=== PATIENT | female | born 1990 | race Caucasian/White ===

== ENCOUNTER 2021-07-31 09:19 | Emergency (ER) | payer OTHER, SELFPAY ==
--- NOTE | ~2021-07-31 | XR_ITS ---
XR knee LT min 4V DATE: 07/31/2021 09:36 INDICATION: Fall, left knee injury TECHNIQUE: Geddes, AP, bilateral oblique views and crosstable lateral view. COMPARISON: None FINDINGS: No fracture or dislocation or joint effusion. Joint spaces are preserved. No radiopaque int ra-articular loose body or chondrocalcinosis. IMPRESSION: Negative Reviewed, dictated and finalized at location A. IMPRESSION: Negative
--- NOTE | 2021-07-31 09:23 | ED.LOWEXIN ---
HPI - Extremity Injury (Lower) General Chief Complaint: Extremity Injury, Lower Stated Complaint: Left knee injury Time Seen by Provider: 07/31/21 09:23 Source: patient and RN notes reviewed History of Present Illness HPI Narrative: Patient is a 31-year-old female presents the urgent care with complaints of left knee pain after falling onto a piece of metal with a screw yesterday. Patient states she has noticed increased swelling and tenderness. Patient states is very difficult to bend the knee due to pain. Patient denies any recent fevers. States that she is up-to-date on her tetanus shot. Patient has been taking Tylenol for the pain. No other acute complaints. No acute distress noted. Patient aware of the plan of care. Some parts of this dictation were generated by voice recognition software and may contain typographical and/or grammatical inaccuracies. Related Data Home Medications Medication Instructions Recorded Confirmed norgestimate-ethinyl estradiol 1 tablet PO DAILY 07/31/21 07/31/21 [Sprintec (28)] Allergies Allergy/AdvReac Type Severity Reaction Status Date / Time No Known Allergies Allergy Unverified 07/31/21 09:46 Review of Systems Review of Systems: CONSTITUTIONAL: Denies fever, chills, or sweats. EYES: Denies visual changes, redness, or discharge. ENT: Denies rhinorrhea, congestion, sore throat, or otalgia. CARDIOVASCULAR: Denies chest pain, palpitations, or edema. RESPIRATORY: Denies cough or dyspnea. GASTROINTESTINAL: Denies abdominal pain, nausea, vomiting, or diarrhea. GENITOURINARY: Denies dysuria or hematuria. SKIN: Reports of puncture wound to left knee MUSCULOSKELETAL: Reports of left knee pain and swelling NEUROLOGIC: Denies headache, numbness, or weakness. All other systems reviewed are negative, except as documented in HPI. PMFSH Comments At the time of my signature, I reviewed and agree with the nursing past medical, surgical, social, and family history. There is no relevant family history pertinent to the patient complaint. Exam Narrative: GENERAL: This is a well-nourished, well-developed patient, in no apparent distress. HEAD: normocephalic, atraumatic. EYES: PERRL. Sclera clear/white. Vision is grossly intact. EARS: External ears normal NOSE: External nose normal with no obvious nasal discharge, nares without redness, no rhinorrhea. THROAT: Mucous membranes moist NECK: Neck supple CARDIOVASCULAR: Regular rate and rhythm without murmurs, gallops, or rubs. RESPIRATORY: Clear to auscultation. Breath sounds equal bilaterally. No wheezes, rales, or rhonchi. SKIN: Puncture wound without surrounding erythema to the left anterior knee NEURO: awake, alert, and oriented to person, place and time. There were no obvious focal neurologic abnormalities. EXTREMITIES: Mild to moderate edema and tenderness surrounding the left anterior knee. Positive strong left pedal pulse with capillary refill less than 2 seconds. Range of motion not tested due to pain Course Course Level of Care: Express Care Visit Vital Signs Vital signs: Vital Signs Temperature 98.8 F 07/31/21 09:24 Pulse Rate 64 07/31/21 09:24 Respiratory Rate 18 07/31/21 09:24 Blood Pressure 139/95 H 07/31/21 09:24 Pulse Oximetry 100 07/31/21 09:24 Temperature 98.8 F 07/31/21 09:46 Pulse Rate 64 07/31/21 09:46 Respiratory Rate 18 07/31/21 09:46 Blood Pressure 139/95 H 07/31/21 09:46 Pulse Oximetry 100 07/31/21 09:46 Reviewed-patient is informed that they may have pre-hypertension or hypertension based on a blood pressure reading in the department. I recommend the patient call the primary care provider listed on their discharge instructions or a physician of their choice this week to arrange follow-up for further evaluation of possible pre-hypertension or hypertension. MDM - Extremity Injury (Lower) MDM Narrative Medical decision making narrative: Reviewed x-ray results with the patient. She is
[2021-07-31 09:24] VITALS: BP 139/95; PULSE 64; RESP 18; TEMP 37.1; O2SAT 100
[2021-07-31 09:46] VITALS: BP 139/95; PULSE 64; RESP 18; TEMP 37.1; O2SAT 100
== END 2021-07-31 10:00 | disposition home or self-care (01) ==
PROVIDERS: Emergency Provider Nurse Practitioner Family; PCP Internal Medicine
DX: S81.032A Puncture wound without foreign body, left knee, initial encounter (principal); M25.562 Pain in left knee; W18.39XA Other fall on same level, initial encounter
CPT/HCPCS: 73564; 99213; G0463

== ENCOUNTER 2024-01-03 10:33 | Emergency (ER) | payer BC, SELFPAY ==
[2024-01-03 10:40] VITALS: BP 118/69; PULSE 93; RESP 16; TEMP 37; O2SAT 100
[2024-01-03 11:03] LABS: EDSTREPNEGPOS1 Negative (Negative)
--- NOTE | 2024-01-03 11:27 | ED.URI ---
HPI - URI/Sore Throat General Chief Complaint: Upper Respiratory Infection Stated Complaint: throat/aches Time Seen by Provider: 01/03/24 11:00 Source: patient, RN notes reviewed and old records reviewed Mode of arrival: ambulatory Limitations: no limitations History of Present Illness HPI Narrative: 33 year old female who presents to [facility] care with complaints of sore throat which started yesterday and some body aches. Patient reports that she has had recent positive exposure to strep. Patient reports that her glands in her marino are tender. Patient denies any headache or any nausea or vomiting, Has taken some Ibuprofen for her lymptoms MD elicited complaint: sore throat and other (body aches) Onset (ago): day(s) (day 2 of symptoms) Pain scale (0-10): 7 Able to tolerate fluids by mouth: Yes Related Data Home Medications Medication Instructions Recorded Confirmed norgestimate 0.25 mg-ethinyl 1 tablet PO DAILY 07/31/21 07/31/21 estradiol 35 mcg tablet (Sprintec (28)) Allergies Allergy/AdvReac Type Severity Reaction Status Date / Time No Known Allergies Allergy Unverified 01/03/24 10:34 Review of Systems Review of Systems: CONSTITUTIONAL: Reports malaise, chills, sweats, no known fever. EYES: Denies visual changes, redness, or discharge. ENT: Reports rhinorrhea, congestion,no sinus pain, otalgia and positive for sore throat. CARDIOVASCULAR: Denies chest pain, palpitations, or edema. RESPIRATORY: Reports no cough.? Denies dyspnea. GASTROINTESTINAL: Denies abdominal pain, nausea, vomiting, diarrhea SKIN: Denies rash or itching. MUSCULOSKELETAL: Reports myalgia. NEUROLOGIC: Denies headache. All systems reviewed & are unremarkable except as noted in HPI and below PMFSH Past Medical History Medical History Fracture of right upper extremity Tonsillitis Social History Social History Smoking packs per day: 0.25 Smoking cigarettes per day: 5.0 Years smoked: 10 Smoking pack-years: 2.50 Smoking status: Former smoker Alcohol intake: current Alcohol use details: rare social Substance use type: does not use Living arrangements: with family Gender identity (if verbalized by the patient): Female Comments At time of signature, agree with nursing past medical, surgical, social and family history. There is no relevant family history pertinent to the presenting complaint Exam Narrative: GENERAL: Well-appearing, well-nourished, and in no acute distress. HEAD: Normocephalic EYES: PERRLA, conjunctivae clear ENT: Nares clear, turbinates edematous and erythematous, clear discharge. Mucous membranes moist Left TM red, Right TM pearly abad with dull light reflex ; no tragal tenderness. Oropharynx erythematous without lesions. Tonsils red enlarged and without exudate, no drooling, no hoarseness, no trismus, uvula midline.some post nasal drainage NECK: Supple. lymphadenopathy CHEST: Clear to auscultation, breath sounds equal. No wheezing, rhonchi, rales, or stridor. No respiratory distress, speaks in full sentences.SAO2 100% on room air HEART: Regular rate and rhythm. No murmur heard. SKIN: Warm, dry, no rash. NEURO: Alert and oriented x3. PSYCH: Normal mood and affect Course Course Emergency Course: Patient is aware of diagnosis, understands and agrees to treatment plan.? Anticipatory guidance given.? Patient agrees to follow-up as directed and is aware of reasons to seek care at the emergency department. Portions of this record may have been created with voice recognition software Level of Care: Express Care Visit Vital Signs Vital signs: Vital Signs Temperature 37.0 C 01/03/24 10:40 Pulse Rate 93 01/03/24 10:40 Respiratory Rate 16 01/03/24 10:40 Blood Pressure 118/69 01/03/24 10:40 Pulse Oximetry 100 01/03/24 10:40 Oxygen Deli
[2024-01-03 12:17] LABS: EDCOVIDSCREEN Negative (Negative); EDINFLUASCREEN Negative (Negative); EDINFLUBSCREEN Negative (Negative)
== END 2024-01-03 12:06 | disposition home or self-care (01) ==
PROVIDERS: Emergency Provider Registered Nurse; PCP Internal Medicine
DX: H66.92 Otitis media, unspecified, left ear (principal); J03.90 Acute tonsillitis, unspecified; Z87.891 Personal history of nicotine dependence; Z20.822 Contact with and (suspected) exposure to COVID-19
CPT/HCPCS: 87081; 87426; 87804; 87880; 99213; G0463

== ENCOUNTER 2024-10-13 11:04 | Outpatient (CLI) | payer OTHER, SELFPAY ==
--- NOTE | ~2024-10-13 | XR_ITS ---
Left elbow Technique: AP and lateral views were obtained. Clinical History: Pain Findings: No acute fracture or dislocation is seen. Osseous alignment is anatomic. Joint spaces are p reserved. There is no displacement of the fat pads, and soft tissues are unremarkable. Impression: Unremarkable radiographs. Reviewed, dictated and finalized at location . Impression: Unremarkable radiographs.
--- NOTE | ~2024-10-13 | XR_ITS ---
Right elbow Technique: AP and lateral views were obtained. Clinical History: Pain Findings: No acute fracture or dislocation is seen. Osseous alignment is anatomic. Joint spaces are p reserved. There is no displacement of the fat pads, and soft tissues are unremarkable. Impression: Unremarkable radiographs. Reviewed, dictated and finalized at location . Impression: Unremarkable radiographs.
--- OUTSIDE RECORDS SUMMARY | 2024-10-13 11:11 | XMS_ITS | Referral Summary ---
Author Organization [facility] [address] Address [address] [place] [address] Phone Care Team Providers Care Sports Psychologist Name Role Phone Sabrina Carter MD Unavailable Donnell Sequeira MD Primary Care Provider [phone] Allergies No known active allergies Medications norgestimate-ethin yl estradioL (Sprintec, 28,) 0.25-35 mg-mcg per tabletIndications: Dysmenorrhea,Oral contraceptive pill surveillance Take 1 tablet by mouth daily 84 tablet 4 5 Active Active Problems Problem Noted Date Diagnosed Date Tendinitis of right elbow 08/13/2023 Assessment & Plan (08/13/2023 2:53 PM CDT): Patient is describing mild case of tendinitis right elbow. Started in January pain very infrequent is gradually built up to daily pain. 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 Patient is given information from up-to-date today regarding tennis elbow. Treatment would include ice cold hot packs physical therapy exercises she can do as well as elbow sleeve. Patient's contact me if she does not satisfactory improved at that time was sent in a prescription non steroidal anti-inflammatory Hand, foot and mouth disease (HFMD) 12/08/2022 Assessment & Plan (12/08/2022 12:15 PM CDT): Spotty rash on hands, feet, inside mouth. Accompanied by flu-like symptoms. Son was diagnosed by budget counselor last week. Is beginning to feel better, spots are resolving. Continue to treat symptomatically. Provided note to take 12/06 off work, may return to work 12/07. Acute pain of left knee 09/16/2021 Assessment & Plan (09/16/2021 12:54 PM CDT): Patient phone left knee pop 6 7 weeks ago still has some pain she landed on the screw and she is in no acute distress about this when she bends and twists certain ways. Advised that she can new use a knee sleeve this may help her times since her works physical and patient's advised use topical anti-inflammatory medicines are take the Aleve type products on a p.r.n. basis.. She had x-ray done at time injury was negative. Lipoma of right upper extremity 09/16/2021 Assessment & Plan (02/28/2022 1:11 PM RESIDENT CARE COORDINATOR): Patient has a lipoma lateral border for lower left scapula . Patient advised me that her is concerned regarding this I gave her information on lipoma. Her exam of lipomas benign. 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 Assessment & Plan (09/16/2021 12:56 PM CDT): Patient has a lipoma on right forearm she also has 1 just below the sternum.. Advised he has a benign situation is no treatment indicated.. Patient is also given handbook from the [employer] regarding melanomas. Encounter for preventive health examination 01/31 Assessment & Plan (08/13/2023 2:51 PM CDT): 33-year-old lady here for annual exam she has no risk factors print physical completed patient's health risk assessment health maintenance reviewed in addressed. Patient's well-woman exam is current. Patient is describing tennis elbow at this time. Assessment & Plan (02/28/2022 1:12 PM RESIDENT CARE COORDINATOR): History and physical completed patient's health risk assessment health maintenance reviewed in addressed. Please see assessment and plan. 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 Patient is seen on 02/27/2022 Assessment & Plan (02/14/2021 5:25 PM RESIDENT CARE COORDINATOR): 30-year-old lady no ongoing health problems she is a smoker we discussed in discontinuation smoking she was successful in doing this 7 years ago when she had her son. Plans to try to discontinue smoking again. Patient has a well-woman exam on record.. Patient immunizations due tetanus shot is given today. Resolved Problems Problem Noted Date Diagnosed Date Resolved Date Type 2 diabetes mellitus wit h other specified complication 02/14/2021 02/28/2022 Assessment & Plan (02/14/2021 5:24 PM RESIDENT CARE COORDINATOR): Diagnosis erroneously submitted. This patient had abnormal glucose on a screening test for an insurance and she needs to have it repeated today she was never diagnosed with diabetes. Immunizations Immunization Administration Dates Next Due DTP 06/07/1994, 2,02/11/1991,10/09,1990 HPV, Quadrivalent 05/28/2007,01/22/2007,11/28/19 07 Hep B, Adolescent or Pediatric 1,05/29/2000,04/24/2000,10/09 HiB 07/10/1996, 2,02/11/1991,10/09 Influenza, Quadrivalent, Spl it, Intramuscular 01/10/2016 MMR 12/06/1993,08/13/1991 Meningococcal C Conjugate 11/27/2006 OPV 06/07/1994, 2,02/11/1991,10/09,1990 Td, adsorbed 02/14/2021,12/12/2004 Social History Tobacco Use Types Packs/Day Years Used Date Smoking Tobacco: Former Cigarettes 0.5 16.5 S tarted: 2008 Smokeless Tobacco: Never Tobacco Cessation:Counseling Given: Not Answered Alcohol Use Standard Drinks/Week Comments Yes 0 (1 standard drink = 0.6 oz pur e alcohol) PHQ-2 Answer Date Recorded PHQ-2 Total Score (If total score is 3 or more points, staff should administer the PHQ-9) 0 08/13/2023 Comments No Sex and Gender Information Value Date Recorded Sex Assigned at Not on file Legal Sex Female 11:03 AM RESIDENT CARE COORDINATOR Gender Identity Female 01/03/2024 10:52 AM CDT Sexual Orientation Straight 01/03/2024 10 :52 AM CDT Occupation Industry Job Start Date Job End Date [place] Not on file Not on file Not on file Last Filed Vital Signs Vital Sign Reading Time Taken Comments Blood Pressure 110/62 06/30/2024 9:46 AM CDT Pulse 84 08/13/2023 1:55 PM CDT Temperature 36.2 C (97.1 F) 08/13/2023 1:55 PM CDT Respiratory Rate 16 08/13/2023 1:55 PM CDT Oxygen Saturation 98% 08/13/2023 1:55 PM CDT Inhaled Oxygen Concentration - - Weight 67.1 kg (148 lb) 06/30/2024 9:46 AM CDT Height 154.9 cm (5' 1) 06/30/2024 9:46 AM CDT Body Mass Index 27.96 06/30/2024 9:46 AM CDT Plan of Treatment Not on file Procedures Procedure Name Priority Date/Time Associated Diagnosis Comments PAP AND HIGH RISK HPV, REFLEX TO GENOTYPING Routine 05/16/2021 9:36 AM RESIDENT CARE COORDINATOR Screening for malignant neoplasm of cervix HEPATITIS C ANTIBODY Routine 03/07/2013 4:48 PM RESIDENT CARE COORDINATOR from Last 3 Months or Most Recently Relevant to Health Maintenance Results * Pap and High Risk HPV, reflex to Genotyping (05/16/2021 9:36 AM RESIDENT CARE COORDINATOR) Thin prep (Pap test) 05/16/2021 9:36 AM RESIDENT CARE COORDINATOR 05/16/2021 9:36 AM RESIDENT CARE COORDINATOR Narrative PATHOLOGY CH - 05/18/2021 2:54 PM RESIDENT CARE COORDINATOR [facility] Department of Pathology [address] [place] [address] [place] [address] Final Report with Addendum Note to Patients: This report may contain a detailed description of human tissue sent by a health care provider to the laboratory for pathologic evaluation. The content of this report is essential for diagnosis and may provide important critical findings. This information may be unfamiliar to patients to review without a medical professional present. It is advised that the patient review this report in the presence of a health care provider who can answer questions and explain the details. Patient Name: MAIRA UMANZOR Address: [address] [place] [address] Gender: F : 1990 (Age: 31) Service: Laboratory Location: Lab [facility] #: [id number] Patient Type: [facility] Lab Taken: 05/16/2021 Received: 05/16/2021 Accessioned:: 05/17/2021 Reported: 05/18/2021 Physician(s): MD Sabrina Grande MD Diagnosis: Source of Specimen: SCREENING THIN PREP IMAGED PAP w/ HPV Specimen Adequacy: - Specimen satisfactory for interpretation; endocervical/transformation zone component absent or insufficient General Category: - Negative for intraepithelial lesion or malignancy Interpretation/Results: - Predominance of coccobacilli consistent with shift in vaginal sarah. Possible bacterial vaginosis BOB Liu(ASCP) Report Electronically Reviewed and Signed Out By DEMIAN LiuASCP) 05/18/2021 14:54:07 Addenda: HPV Test Interpretation NEGATIVE for types 16, 18, 31, 33, 35, 39, 45, 51, 52, 56, 58, 59, 66 and 68. Test performed utilizing Gen-Probe Aptima assay. BOB Denton(ASCP) Report Electronically Reviewed and Signed Out By DEMIAN DentonASCP) 05/18/2021 10:20:25 Specimen(s) Received: A: SCREENING THIN PREP IMAGED PAP w/ HPV Clinical History: Last Menstrual Period: 04/29/2021 The Pap test is a screening test used to aid in the detection of cervical cancer and its precursors. It should not be the sole means by which malignant and premalignant lesions are diagnosed. Both false negative and false positive results may occur. It also has poor sensitivity for the detection of endometrial lesions and should not be used to evaluate suspected endometrial abnormalities. For these reasons it is most important to obtain Pap tests at regular intervals. The performance characteristics of some immunohistochemical stains, fluorescence in-situ hybridization tests and immunophenotyping by flow cytometry cited in this report (if any) were determined by the Surgical Pathology Department at [facility] as part of an ongoing quality control scientist program and in compliance with federally mandated regulations drawn from the Clinical Laboratory Improvement Act of 1988 (CLIA '88). Some of these tests rely on the use of analyte specific reagents and are subject to specific labeling requirements by the US Food and Drug Administration. Such diagnostic tests may only be performed in a facility that is certified by the Department of Health and Human Services as a high complexity laboratory under CLIA '88. The FDA has determined that such clearance or approval is not necessary. This test is used for clinical purposes. It should not be regarded as investigational or for research. Nevertheless, federal rules concerning the medical use of analyte specific reagents require that the following disclaimer be attached to the report: This test was developed and its performance characteristics determined by the Surgical Pathology Department [facility]. It has not been cleared or approved by the U. S. Food and Drug Administration. Sabrina Carter MD LAB CYTOLOGY ORDERABL ES Final Result PATHOLOGY [address] [place] [address] * Hepatitis C antibody (03/07/2013 4:48 PM RESIDENT CARE COORDINATOR) Hep C Ab NON-REACT LEX NON-REACT LEX [facility] SIGNAL TO CUT-OFF 0.03 <1.00 [facility] Comment: [facility] [address] [place] [address] Director: DONNELL VELÁSQUEZ DO,MPH 03/07/2013 4:48 PM RESIDENT CARE COORDINATOR Sabrina Carter MD LAB MICROBIOLOGY - GE NERAL ORDERABLES Final Result [facility] from Last 3 Months or Most Recently Relevant to Health Maintenance Insurance [facility] Address: [address] [address] [place] [address] [facility] OPEN ACCESS R [facility] Address: [address] [address] [place] [address] Care Teams Sports Psychologist Relationship Specialty Start Date End Date Donnell Sequeira MD [address] [place] [address] PCP - General Internal Medicine 09/15/21 Sabrina Carter MD [address] [place] [address] Bootmaker Obstetrics and Gynecology 01/19/17
--- OUTSIDE RECORDS SUMMARY | 2024-10-13 11:11 | XMS_ITS | Clinical Summary ---
Author Organization [facility] Address [address] [place] [address] Phone Care Team Providers Care Hot Dip Plater Name Role Phone Donnell Sequeira MD Primary Care Provider [phone] Allergies No known active allergies Medications No known medications Active Problems No known active problems Social History Tobacco Use Types Packs/Day Years Used Date Smoking Tobacco: Never Smokeless Tobacco: Never Comments No Sex and Gender Information Value Date Recorded Sex Assigned at Not on file Legal Sex Female 10:41 AM CDT Gender Identity Not on file Sexual Orientation Not on file Last Filed Vital Signs Vital Sign Reading Time Taken Comments Blood Pressure 112/56 01/14/2023 11:12 AM CDT Pulse 99 01/14/2023 11:12 AM CDT Temperature 36.6 C (97.8 F) 01/14/2023 11:12 AM CDT Respiratory Rate 16 01/14/2023 11:12 AM CDT Oxygen Saturation 100% 01/14/2023 11:12 AM CDT Inhaled Oxygen Concentration - - Weight - - Height - - Body Mass Index - - Plan of Treatment Health Maintenance Due Date Last Done Comments Hepatitis C Virus (HCV) Screening 1990 TdaP Immunization 1990 Human Papillomavirus (HPV) Immunization (1 - 3-dose series) 2005 Hepatitis B Immunization (1 of 3 - 19+ 3-dose series) 2009 Pap Smear 2011 Cervical Cancer Screening (CCS) 2020 HPV/Cotest 2020 SARS-COV-2 Immunization ( - 2023- season) 2023 Influenza Immunization (#1) 2024 Respiratory Syncytial Virus (RSV) Immunization (Adult) (1 - 1-dose 75+ series) 2065 DTaP/Tdap/Td Immunization Discontinued 02/14/2021 Meningococcal Immunization (ACWY) Aged Out No longer eligible based on patient's age to complete this topic Pneumococcal Immunization Combined Aged Out No longer eligible based on patient's age to complete this topic Rotavirus Immunization Aged Out No lo nger eligible based on patient's age to complete this topic Insurance [facility] Care Teams Hot Dip Plater Relationship Specialty Start Date End Date Donnell Sequeira MD [address] [place] [address] PCP - General Internal Medicine 01/14/23
--- OUTSIDE RECORDS SUMMARY | 2024-10-13 11:11 | XMS_ITS | Encounter Summary ---
Author Organization [facility] Address [address] [place] [address] Phone Care Team Providers Care Forest Law And Policy Professor Name Role Phone Nasrin Lucero MD Primary Care Provider Nasrin Lucero MD Primary Care Provider [phone] Sabrina Carter MD Unavailable [phone] Donnell Sequeira MD Primary Care Provider [phone] Encounter Details Date Type Department Care Team (Late st Contact Info) Description 08/03/2012 Orders Only [facility] [address] [place] [address] Scanning, Provider Social History Tobacco Use Types Packs/Day Years Used Date Smoking Tobacco: Never Assessed Comments Unknown Sex and Gender Information Value Date Recorded Sex Assigned at Not on file Legal Sex Female 11:03 AM COPPERSMITH APPRENTICE Gender Identity Female 01/03/2024 10:52 AM CDT Sexual Orientation Straight 01/03/2024 10 :52 AM CDT documented as of this encounter Plan of Treatment Not on file documented as of this encounter Procedures Procedure Name Priority Date/Time Associated Diagnosis Comments SCAN - RADIOLOGY/IMAGING 08/03/2012 documented in this encounter Results * SCAN - RADIOLOGY/IMAGING (08/03/2012) Anatomical Region Laterality Modality Other us Provider Scanning Final Result documented in this encounter Visit Diagnoses Not on filedocumented in this encounter Additional Health Concerns Infection Onset Date Last Indicated Resolved Time COVID: Suspected 04/24/2023 04/24/2023 04/24/2023 10:32 AM COPPERSMITH APPRENTICE documented as of this encounter Care Teams Forest Law And Policy Professor Relationship Specialty Start Date End Date Nasrin Lucero MD [address] [place] [address] PCP - General 02/12/13 09/14/21 Nasrin Lucero MD [address] [place] [address] PCP - General 08/05/12 02/11/13 Donnell Sequeira MD [address] [place] [address] PCP - General Internal Medicine 09/15/21 Sabrina Carter MD [address] [place] [address] Education Counselor Obstetrics and Gynecology 01/19/17 documented as of this encounter
--- OUTSIDE RECORDS SUMMARY | 2024-10-13 11:11 | XMS_ITS | Clinical Summary ---
Author Organization [facility] [address] Address [address] [place] [address] Phone Care Team Providers Care Tractor Mechanic Name Role Phone Sabrina Carter MD Unavailable Donnell Sequeira MD Primary Care Provider [phone] Allergies No known active allergies Medications norgestimate-ethin [...] to daily pain. 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 Son was diagnosed by motor grader rough grade last week. Is beginning to feel better, [...] 09/16/2021 Assessment & Plan (02/28/2022 1:11 PM DEMO SPECIALIST): Patient has a lipoma lateral border for [...] Patient is also given handbook from the [employer] regarding melanomas. Encounter for preventive health examination 01/31 Assessment & Plan (08/13/2023 2:51 PM CDT): 33-year-old lady here for annual exam she has no risk factors print physical completed patient's health risk assessment health maintenance reviewed in addressed. Patient's well-woman exam is current. Patient is describing tennis elbow at this time. Assessment & Plan (02/28/2022 1:12 PM DEMO SPECIALIST): History and physical completed patient's health risk assessment health maintenance reviewed in addressed. Please see assessment and plan. 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 Patient is seen on 02/27/2022 Assessment & Plan (02/14/2021 5:25 PM DEMO SPECIALIST): 30-year-old lady no ongoing health problems she [...] 02/28/2022 Assessment & Plan (02/14/2021 5:24 PM DEMO SPECIALIST): Diagnosis erroneously submitted. This patient had abnormal [...] 11/27/2006 OPV 06/07/1994, 2,02/11/1991,10/09,1990 Td, adsorbed 02/14/2021,12/12/2004 Medical History Medical History Date Comments Abnormal Pap smear of cervix 2018 LSI L, more advanced lesion may be present. Colposcopy - ROSALINA 1. Family History Medical History Relation Name Comments Diabetes Maternal Grandmother Diabete s mellitus; Other Mother's Brother 2 Cancer, u nknown type; Cause of : Cancer, unknown type Hypertension Paternal Grandmother Hyperte nsion; Relation Name Status Comments Maternal Grandmother Mother's Brother 1 Mother's Brother 2 Paternal Grandmother Social History Tobacco Use Types Packs/Day Years [...] on file Legal Sex Female 11:03 AM DEMO SPECIALIST Gender Identity Female 01/03/2024 10:52 AM CDT Sexual Orientation Straight 01/03/2024 10 :52 AM CDT Occupation Industry Job Start Date Job End Date [employer] Not on file Not on file Not on file Obstetrics History Para Term AB IAB SAB Ectopic Multiple Livin g Live Births 1 1 1 0 0 1 1 Date Outcome GA Total Labor Labor/2nd/3rd Weight Sex Type Anes PTL Danya A1 A5 Name Clin 2013 Term M Vag-V acuum Living Last Filed Vital Signs Vital Sign Reading [...] 06/30/2024 9:46 AM CDT Plan of Treatment Health Maintenance Due Date Last Done Comments Varicella Vaccines (1 of 2 - 13+ 2-dose series) 2003 DTaP/Tdap/Td Vaccine (6 - Tdap) 02/15/2021 02/14/2021, 12/12/2004, 06/07/1994, Additional history exists Cervical Cancer Screening 05/16/2022 05/16/2021, Depression Screening 08/12/2024 08/13/2023, 02/27/2022, 02/14/2021 Influenza Vaccine (#1) 2024 01/10/2016 Regular Well Visit/Exam 18-64 06/30/2025 06/30/2024, 08/13/2023, 06/11/2023, Additional history exists Hepatitis B Screening Completed 10/23/2000 , 05/29/2000, 04/24/2000, Additional history exists HPV Vaccines Completed 05/28/2007, 01/01, 11/27/2006 Hepatitis C Screening Completed 03/07/2013 Pneumococcal vaccine <65 Aged Out No longer eligible based on patient's age to complete this topic Procedures Procedure Name Priority Date/Time Associated Diagnosis Comments PAP AND HIGH RISK HPV, REFLEX TO GENOTYPING Routine 05/16/2021 9:36 AM DEMO SPECIALIST Screening for malignant neoplasm of cervix HEPATITIS C ANTIBODY Routine 03/07/2013 4:48 PM DEMO SPECIALIST from Last 3 Months or Most Recently Relevant to Health Maintenance Results * Pap and High Risk HPV, reflex to Genotyping (05/16/2021 9:36 AM DEMO SPECIALIST) Thin prep (Pap test) 05/16/2021 9:36 AM DEMO SPECIALIST 05/16/2021 9:36 AM DEMO SPECIALIST Narrative PATHOLOGY CH - 05/18/2021 2:54 PM DEMO SPECIALIST [facility] Department of Pathology [address] [place] [id number] Final Report with Addendum Note to Patients: [...] the details. Patient Name: MAIRA UMANZOR Address: [address] [place] [address] Gender: F : 1990 (Age: 31) Service: Laboratory Location: Lab [facility] #: [id number] Patient Type: Ref Lab Taken: 05/16/2021 Received: 05/16/2021 Accessioned:: 05/17/2021 [...] Electronically Reviewed and Signed Out By DEMIAN LiuASC) 05/18/2021 14:54:07 Addenda: HPV Test Interpretation NEGATIVE for types 16, 18, 31, 33, 35, 39, 45, 51, 52, 56, 58, 59, 66 and 68. Test performed utilizing Gen-Probe Aptima assay. BOB Denton(ASCP) Report Electronically Reviewed and Signed Out By BOB Denton(ASC) 05/18/2021 10:20:25 Specimen(s) Received: A: SCREENING THIN [...] determined by the Surgical Pathology Department at [facility] as part of an ongoing quality intern program and in compliance with federally mandated [...] characteristics determined by the Surgical Pathology Department [facility]. It has not been cleared or approved by the U. S. Food and Drug Administration. Sabrina Carter MD LAB CYTOLOGY ORDERABL ES Final Result PATHOLOGY [address] [place] [address] * Hepatitis C antibody (03/07/2013 4:48 PM DEMO SPECIALIST) Hep C Ab NON-REACT LEX NON-REACT LEX [facility] SIGNAL TO CUT-OFF 0.03 <1.00 [facility] Comment: Test performed at [email or web address] [place] [address] [place] [address] Director: DONNELL VELÁSQUEZ DO,MPH 03/07/2013 4:48 PM DEMO SPECIALIST Sabrina Carter MD LAB MICROBIOLOGY - GE NERAL ORDERABLES Final Result [facility] RESULTS from Last 3 Months or Most Recently Relevant to Health Maintenance Insurance [facility] OPEN ACCESS [facility] Care Teams Tractor Mechanic Relationship Specialty Start Date End Date Donnell Sequeira MD [address] [place] [id number] PCP - General Internal Medicine 09/15/21 Sabrina Carter MD [address] [id number] Rug Cleaner Helper Obstetrics and Gynecology 01/19/17
[2024-10-13 18:21] LABS: Hematocrit 42.7 % (37.0-47.0); Hemoglobin 13.7 g/dL (12.0-15.0); Mean Corpuscular HGB Conc 32.1 g/dl (32-36); Mean Corpuscular Hemoglobin 31.5 pg (26-34); Mean Corpuscular Volume 98.2 fl (80-100); Platelet Count Result 340 k/mm3 (150-375); Red Blood Count 4.35 M/mm3 (4.2-5.4); White Blood Count 8.8 K/mm3 (4.5-10.0)
[2024-10-13 18:37] LABS: Alanine Aminotransferase 23 U/L (6-35); Albumin Level 4.2 g/dL (3.5-5.1); Alkaline Phosphatase 40 U/L (38-126); Anion Gap 7 mmol/L (4-12); Aspartate Amino Transferase 82 U/L (14-36); Bilirubin,Total 0.3 mg/dL (0.2-1.3); Blood Urea Nitrogen 18 mg/dL (7-17); Calcium 9.3 mg/dL (8.4-10.2); Carbon Dioxide 26 mmol/L (22-30); Chloride 107 mmol/L (98-107); Cholesterol 183 mg/dL (0-200); Estimated Glomerular Filt Rate > 60; Glucose 94 mg/dL (65-110); HDL Direct 69 mg/dL; Potassium 3.9 mmol/L (3.4-5.0); Sodium 140 mmol/L (137-145); Total Protein 7.3 g/dL (6.3-8.2); Triglycerides 98 mg/dL (<150)
[2024-10-13 21:54] LABS: Thyroid Stimulating Hormone 1.120 uIU/mL (0.465-4.680)
== END 2024-10-13 11:05 | disposition home or self-care (01) ==
PROVIDERS: PCP Nurse Practitioner Adult Health; Visit Provider Nurse Practitioner Adult Health
DX: M25.521 Pain in right elbow (principal); M25.522 Pain in left elbow; Z13.9 Encounter for screening, unspecified
CPT/HCPCS: 36415; 73070; 80053; 80061; 84443; 85027

== ENCOUNTER 2024-11-24 09:26 | Outpatient (CLI) | payer OTHER, SELFPAY ==
--- NOTE | ~2024-11-24 | US_ITS ---
US soft tissue abdomen 11/24/2024 09:36 Indication: Midline abdominal palpable lump. Procedure: Soft tissue ultrasound of the abdomen and the area palpable concern midline abdomen Comparison: No prior studies for comparison. Findings: In the area of palpable concern there is an oval parallel oriented hyperechoic mass measuring approximately 3.4 x 2.1 x 1.6 cm with striations horizontal to the skin surface. No internal vascularity or posterior features. Impression: 1: Hyperechoic 3.4 cm mass in the area palpable concern with characteristics compatible with a lipoma. Recommend follow-up ultrasound as clinically indicated. Reviewed, dictated and finalized at location O. Impression: 1: Hyperechoic 3.4 cm mass in the area palpable concern with characteristics co mpatible with a lipoma. Recommend follow-up ultrasound as clinically indicated.
== END 2024-11-24 09:27 | disposition home or self-care (01) ==
PROVIDERS: PCP Nurse Practitioner Adult Health; Visit Provider Nurse Practitioner Adult Health
DX: R19.00 Intra-abdominal and pelvic swelling, mass and lump, unspecified site (principal); K31.89 Other diseases of stomach and duodenum
CPT/HCPCS: 76705

== ENCOUNTER 2025-02-05 01:30 | Day surgery (SDC) | payer OTHER, SELFPAY ==
--- NOTE | 2025-01-29 13:53 | SUR.PREOP ---
[facility] has started construction of its new state of the art ER which will open Spring 2026. With this, we anticipate parking may be a challenge for some our surgical patients and families. Parking spaces are limited but are available for all Surgical, obstetrics, and ER patients sharing this lot. If you arrive and find you are having a hard time finding a parking space, please note that we understand the challenges, please drive around the hospital and park near Hospital Entrance 1. When you enter this entrance, you can ask a volunteer to direct or take you back to the surgical waiting area to check in. We appreciate everyone?s understanding of these expected challenges while we build for your future. Report to the Outpatient Waiting Room, entrance under the green pavilion located off [address], at time _10AM__ on date _02/05/25__. Planned Procedure Time: _12PM_.? Time changes happen often and if your time is changed the preop area will call you the afternoon before. - You and your visitor will be asked to self-screen and do not enter if you have any COVID symptoms. Please call surgeon if you need to reschedule. - A mask is optional within the hospital at this time. Patients may have clear liquids (water, carbonated beverages, clear teas, apple juice) until 3 hours prior to surgery with a maximum of 20 ounces. - No food from midnight until time of surgery and no smoking, or chewing tobacco (or any form of nicotine). No chewing gum, candy or mints. . Take only the following medications with a SIP of water on the morning of surgery: __spintec_ DO NOT STOP ANY OF YOUR OTHER PRESCRIPTION MEDICATIONS PRIOR TO SURGERY EXCEPT THE FOLLOWING Hold all vitamins and supplements for 3 days per anesthesiologist. Medications to discontinue per physician __none__ Date to take last dose of vitamins is:_02/01/25__ Please no make-up, nail citizen of [place], hairspray, perfume, deodorant, or body powder the day of surgery.? No jewelry (including any body piercings) or valuables the day of surgery, leave them at home.? Please take a shower or bath the night before, or the morning of, surgery with an antibacterial soap.? Wear comfortable, loose fitting clothing. - Jewelry must be removed prior to entering the operating room.? Rings and piercings that are not removed may be cut off. - The hospital will not accept responsibility for valuables.? - Please leave all valuables, including medications, at home the day of surgery. If you are going home after surgery, a licensed driver education instructor must drive you home.? - NO public transportation without another adult if you receive anesthesia. - We recommend that an adult stay with you for 24 hours following discharge. - We also recommend that you do not drive, make important decision, drink alcoholic beverages, or take any drugs that were not prescribed by your health care provider for at least 24 hours after your discharge time.. Follow any additional instructions given to you from your surgeon. Telephone instructions given to _Maira_and asked if any additional questions and then verbalized understanding. Patient advised to call surgeon office or pre surgery nurse liaison [phone] if any additional questions.
[2025-01-29 13:56] VITALS: BMI 26.4
--- NOTE | 2025-02-03 14:03 | P.SS_ITS ---
Same Day Admit/Disch: HPI History of Present Illness Chief complaint: primary ventral hernia, lipoma back Narrative: Maira Peter is a 34 year old female who had noticed a mid abdominal subcutaneous mass that was bothersome when sitting or bending over. She had an ultrasound which showed a 3.4 cm fatty subcutaneous mass, consistent with a lipoma. She also has a 3 cm subcutaneous mass on the right midback. She was seen in the office for evaluation. The abdominal mass is in the midline and is consistent with a chronically incarcerated primary ventral hernia. The mass on her back is 3 x 2 cm in the right mid back and is consistent with a lipoma. She is taken to surgery at this time for repair of her mid abdominal primary ventral hernia as well as removal of the right-sided lipoma of the back as an outpatient under anesthesia. [facility] Past Medical History Medical History Fracture of right upper extremity Tonsillitis Family History Family History Grandparent Diabetes mellitus Cancer Grandparent Hypertension Social History Social History Smoking packs per day: 0.25 Smoking cigarettes per day: 5.0 Years smoked: 10 Smoking pack-years: 2.50 Smoking status: Former smoker Second hand tobacco smoke exposure: Yes Smoking end date: 12/31/24 Alcohol intake: current Drinks per week: 10 Alcohol use details: On the weekend. Substance use type: does not use Do You Feel Safe in your Home?: Yes Lack of Transportation: No Lack of Food: Never True Current Housing: I Have Housing Concerned About Future Housing: No Difficulty Paying Gas/Electric Bills: YES Difficulty Paying for Meds: No Currently Unemployed: No Education: High School Diploma/GED Difficulty w/ Childcare or Family Care: No Living arrangements: with family Occupation/Education: occupation Additional occupation/education comments: [employer] Gender identity (if verbalized by the patient): Female Spiritual care concerns: No Agree to blood products: No Same Day Admit/Disch: Med Pre-admit Medications Home Medications ?Medication ?Instructions ?Recorded ?Confirmed ?Type norgestimate 0.25 mg-ethinyl 1 tablet PO DAILY 2 02/05/25 History estradiol 0.035 mg tablet (Sprintec (28)) vitamin A 2,500 unit-vit C 100 1 cap PO DAILY 01/29/25 02/05/25 History mg-biotin 2,500 gly-jdig-ztyjvr capsule (Gdil-Xbos-Ivbq (vit A,L-olostg-Bp-Cu)) oxycodone-acetaminophen 5 mg-325 0.5 - 1 tablet PO Q4H PRN pain #8 02/05/25 Rx mg tablet (Percocet) tabs Review of Systems Review of Systems All systems reviewed & are unremarkable except as noted in HPI and below (HPI) Exam Const: General: comfortable, no acute distress, alert and awake HENMT: Head: normocephalic and atraumatic Mouth: Yes Normal oral and palatal mucosa present Eyes: Conjunctivae: conjunctivae normal Pupils: Equal, round and reactive pupils present EOM: EOMs intact bilaterally Neck: Neck: normal visual inspection, no lymphadenopathy and nontender Resp: Effort & Inspection: normal respiratory effort Auscultation: clear to auscultation bilaterally Cardio: Rate: regular rate Rhythm: regular rhythm Heart sounds: no gallops, no murmurs and no rubs GI: Inspection: non-distended and no visible herniation GI Palp: Yes Soft to palpation, No Tenderness to palpation present (GI), No Hepatomegaly present, No Splenomegaly present and Yes Hernia present ventral (Hernia defect not palpable) < 3 cm (Supraumbilical but mid abdominal subcutaneous mass, 1.5 cm by palpation, tender) Back/Spine/Pelvis: Back: mass (3 x 2 cm subcutaneous mass right mid back suggestive of lipoma) Skin: Lesions: no lesions Rashes: no rashes Neuro: General: no focal motor deficits and CN's II-XI intact bilaterally Cranial nerves: Yes Equal, round and reactive pupils present, Yes Bilaterally intact EOM present, Yes facial symmetry and Yes Midline tongue present Speech: normal speech Motor exam (neuro): 5/5 motor strength present throughout and Motor abnormalities not present Extrem: General: no clubbing, cyanosis or edema and edema Psych: Affect: normal affect Thought process: Normal thought process present Insight: Good insight present (Psych) DS: Summary Time Spent with Patient Time attestation: Total time spent providing and/or coordinating discharge services: DS: Admitting Diagnosis Discharge Date 02/05/2025 Admitting Diagnosis * Primary ventral hernia-plan to proceed with open repair under anesthesia. The procedure, risks, benefits have been discussed. All questions were answered. She wishes to proceed. * 3 cm lipoma of the right midback-plan to proceed with excision at the same surgery. I discussed this procedure with the patient including the risks, benefits, and recovery. She agrees to go ahead. DS: Discharge Diagnosis Discharge Diagnosis (1) Lipoma of back: Code(s): D17.1 - Benign lipomatous neoplasm of skin and subcutaneous tissue of trunk Status: Chronic (2) Lipoma of abdominal wall: Code(s): D17.1 - Benign lipomatous neoplasm of skin and subcutaneous tissue of trunk Status: Chronic Discharge Plan Discharge Patient Disposition: Home Discharge Instructions: * Okay to bathe or shower tomorrow. Okay to wash incisions with soap and water. * Stairs are okay * No lifting over 20 lb for 1 week. * No heavy exercise or sports for 2 weeks. * May drive a car on Sunday unless taking narcotic analgesics. * Call Dr. Wright office for persistent wound drainage or bleeding, severe swelling or bruising, severe wound pain, temp over 100.5, or other significant change in condition. * Up walking 5-10 minutes at a time at least 2 or 3 times a day starting tomorrow. Patient Language: Kinyarwanda Stand Alone Forms: General Discharge Instructions Follow-up/Referrals: Sen White MD [Physician, General Surgery] - 2 Weeks Discharge Medications: New oxycodone-acetaminophen [Percocet] 5-325 mg tablet 0.5 - 1 tablet PO Q4H PRN (Reason: pain) Qty: 8 0RF Continued norgestimate-ethinyl estradiol [Sprintec (28)] 0.25-35 mg-mcg tablet 1 tablet PO DAILY Leqv-Rkih-Ktlz(vit A,C-biotin) 2,500 unit-100 mg-2,500 mcg capsule 1 cap PO DAILY
[2025-02-05] VITALS (8 sets, daily range): BP systolic 99–142; BP diastolic 63–96; PULSE 53–115; RESP 14–18; TEMP 36.2–36.6; O2SAT 98–100
--- NOTE | 2025-02-05 10:06 | SUR.PREOP ---
DR JEAN NOTIFIED OF PATIENT HAVING COFFEE AT 8AM WITH MILK AND SUGAR. PER OKAY TO PROCEED
[2025-02-05] MEDS: LACTATED RINGERS 1,000 ML 30 ML IV CONT ×2 (10:40→14:54)
[2025-02-05 10:53] LABS: Hematocrit 38.0 % (37.0-47.0); Hemoglobin 12.8 g/dL (12.0-15.0); Immature Granulocyte Percent A 0.3 % (0-0.5); Lymphocytes Absolute Auto 2.51 K/mm3 (0.9-3.2); Mean Corpuscular HGB Conc 33.7 g/dl (32-36); Mean Corpuscular Hemoglobin 32.0 pg (26-34); Mean Corpuscular Volume 95.0 fl (80-100); Nucleated Red Blood Cells Absolute Auto 0.000 K/mm3 (0.0-0.012); Nucleated Red Blood Cells Perc 0.0 % (0.0-0.2); Platelet Count Result 305 k/mm3 (150-375); Red Blood Count 4.00 M/mm3 (4.2-5.4); White Blood Count 7.3 K/mm3 (4.5-10.0)
[2025-02-05] MEDS: ACETAMINOPHEN 500 MG TABLET 1000 MG PO (11:00)
[2025-02-05] MEDS: KETOROLAC 15 MG/ML VIAL (*BKC) IV PUSH (11:00)
[2025-02-05 11:18] LABS: BEDSIDEPREGUCG Negative (Negative)
--- NOTE | 2025-02-05 11:30 | WPDHPUPDATE1 ---
History and Physical Update Update Date/Time: 02/05/25 11:30 History and Physical has been reviewed, including an updated exam of the patient. There are NO changes in the patient's condition. Risks, benefits, and alternatives have been discussed and questions answered. Patient agrees to proceed with procedure.
--- NOTE | 2025-02-05 13:07 | WPDANESEPPF ---
Anes - Initial Pre Proc Eval Procedure: Operation Date: 02/05/25 12:00 Proposed Procedures p Repair of Primary Ventral Hernia, - Sen White MD s Excision of Lipoma on Back - Sen White MD Date/Time: 02/05/25 13:07 Surgeon: Sen White MD Pre Op Diagnosis: primary ventral hernia, lipoma back Patient Data Age: 34 Gender: F Height: 1.55 m Weight: 66.5 kg Last Vital Signs Temp 97.2 F L 02/05/25 10:00 Pulse 53 L 02/05/25 10:00 Resp 18 02/05/25 10:00 BP 109/65 02/05/25 10:00 Pulse Ox 100 02/05/25 10:00 O2 Del Method Room Air 02/05/25 10:00 Allergies Allergy/AdvReac Type Severity Reaction Status Date / Time No Known Allergies Allergy Verified 02/05/25 11:11 Home Medications ?Medication ?Instructions ?Recorded ?Confirmed ?Type norgestimate 0.25 mg-ethinyl 1 tablet PO DAILY 07/31/21 02/05/25 History estradiol 0.035 mg tablet (Sprintec (28)) vitamin A 2,500 unit-vit C 100 1 cap PO DAILY 01/29/25 02/05/25 History mg-biotin 2,500 zad-odjc-cwmskq capsule (Jgne-Rwei-Chly (vit A,J-wzdkha-Bg-Cu)) Laboratory Tests 02/05/25 02/05/25 10:05 10:47 WBC 7.3 K/mm3 (4.5-10.0) RBC 4.00 L M/mm3 (4.2-5.4) Hgb 12.8 g/dL (12.0-15.0) Hct 38.0 % (37.0-47.0) MCV 95.0 fl (80-100) MCH 32.0 pg (26-34) MCHC 33.7 g/dl (32-36) RDW 12.5 % (11.5-14.5) Plt Count 305 k/mm3 (150-375) MPV 9.2 fl (7.4-10.4) Immature Gran % (Auto) 0.3 % (0-0.5) Neut % (Auto) 56.3 % (45.5-73.1) Lymph % (Auto) 34.5 % (18.3-44.2) [place] % (Auto) 7.7 % (2.6-8.5) Eos % (Auto) 0.8 % (0-4.4) Baso % (Auto) 0.4 % (0.2-1.2) Lymph # (Auto) 2.51 K/mm3 (0.9-3.2) [place] # (Auto) 0.6 K/mm3 (0.1-0.6) Eos # (Auto) 0.1 K/mm3 (0-0.3) Baso # (Auto) 0.0 K/mm3 (0.0-0.1) Abs Immat Gran (auto) 0.02 K/mm3 (0.00-0.031) Absolute Neuts (auto) 4.1 K/mm3 (1.3-6.7) Absolute Nucleated RBC 0.000 K/mm3 (0.0-0.012) Nucleated RBC % 0.0 % (0.0-0.2) POC Urine HCG, Qual Negative (Negative) Patient hx anesthesia problems: none Family hx anesthesia problems: none Results Review: All pre-operative results and documents have been reviewed as part of the pre-operative evaluation. [facility] Past Medical History Medical History Fracture of right upper extremity Tonsillitis Family History Family History Grandparent Diabetes mellitus Cancer Grandparent Hypertension Social History Social History Smoking packs per day: 0.25 Smoking cigarettes per day: 5.0 Years smoked: 10 Smoking pack-years: 2.50 Smoking status: Former smoker Second hand tobacco smoke exposure: Yes Smoking end date: 12/31/24 Alcohol intake: current Drinks per week: 10 Alcohol use details: On the weekend. Substance use type: does not use Do You Feel Safe in your Home?: Yes Lack of Transportation: No Lack of Food: Never True Current Housing: I Have Housing Concerned About Future Housing: No Difficulty Paying Gas/Electric Bills: YES Difficulty Paying for Meds: No Currently Unemployed: No Education: High School Diploma/GED Difficulty w/ Childcare or Family Care: No Living arrangements: with family Occupation/Education: occupation Additional occupation/education comments: [employer] Gender identity (if verbalized by the patient): Female Spiritual care concerns: No Agree to blood products: No Anes - Eval Final PreProcedure Day of Procedure 02/05/25 13:07 Patient weight: normal Heart: regular rate and rhythm Lungs: clear to auscultation Airway: Mallampati scale class II Neurological: alert and oriented Last oral intake: >/= 8 hours ASA classification: II Emergent: no Anesthetic plan: proceed Anesthesia type and monitoring: general LMA and standard monitoring Results Review: All pre-operative results and documents have been reviewed as part of the pre-operative evaluation. Informed Consent: The patient's anesthetic plan and its attendant risks and benefits were discussed with the patient/family/POA. Questions were solicited and answers provided to the satisfaction of the patient/family/POA.
[2025-02-05] MEDS: ceFAZolin 2 GM in SODIUM CHLORIDE 0.9% IV 50 ML 100 ML IVPB (13:15)
--- NOTE | 2025-02-05 13:46 | S_PTH ---
PATIENT: Maira Peter LOC: [facility] U#:[id number] AGE/SX: 34/F ROOM: RE02/05/[address]: Sen White MD : 1990 BED: DIS: 02/05/2025 SPEC #: [id number] RECD: 02/06/25 07:57 STATUS: ABHISHEK REQ #: [id number] ALFIE: 02/05/25 13:[address]: Sen White DEPT: [facility] Surgical RECD BY: Beth North ENTERED: 02/06/25 07:58 SP TYPE: Surgical OTHR DR: Wendy Hernández APRN Tissues: A - Mass B - Mass Procedures: Hematoxylin and Eosin Stain Gross and Microscopic Level 3
[2025-02-05] MEDS: BUPIVACAINE/EPINEPHRINE 0.5% 50 ML VIAL 30 ML INFILTRATE (14:09)
[2025-02-05] MEDS: KETOROLAC 30 MG/ML VIAL (*BKC) IV PUSH (14:58)
[2025-02-05] MEDS: fentaNYL CITRATE INJ (*CRX) 100 MCG/2 ML VIAL 25 MCG IV PUSH ×3 (15:08→15:22)
--- NOTE | 2025-02-05 15:15 | W.PM.PROC2 ---
Procedure Note - Detailed Date of Procedure 02/05/25 Pre-op Diagnosis primary ventral hernia, subcutaneous mass back Post-op Diagnosis Other (3 cm subcutaneous mass of the right back, 3 cm subcutaneous mass abdominal wall) Procedure Performed Excision 3 cm masses of the back and abdominal wall, no margin on either of the masses. Surgeon Sen White MD Semiautomatic Stitcher Operator Ronald Stroud D.O. Anesthesia General (LMA) Indications Patient has had several subcutaneous masses over the years. She has particularly had a subcutaneous mass in the mid abdomen that is bothersome when she bends and turns. She also had a subcutaneous mass on the right back/flank. Exam in the office showed the abdominal wall mass to be very near the midline. Ultrasound showed this to be a lipoma but concern existed that this was actually a primary ventral hernia. She is taken to surgery now for excision of the subcutaneous mass of the right back as well as repair of primary ventral hernia. Findings The subcutaneous mass of the back was an indurated, nodular lipoma, 3 cm in largest dimension. The subcutaneous mass of the anterior abdominal wall was also a lipoma. It was 3 cm in largest diameter. Careful search was made for the hernia defect for the abdominal wall mass but no hernia was found. Description of Procedure Patient was taken to surgery and anesthesia was introduced. She was 1st turned in left lateral decubitus position. The area of the subcutaneous mass had been marked in the preoperative holding area. Prep and drape was then carried out. Local was infiltrated over the anticipated incision as well as around the mass. Incision was then made and dissection was carried down through the skin. The mass was just below the skin and was indurated and nodular. Dissection was then carried out using sharp and blunt dissection as well as cautery. The mass extended down to but not through the muscular fascia. It was removed completely and sent to pathology in formalin. The mass measured 3 cm in largest dimension. It was not excised with a margin. The wound was closed in layers with a deep layer of 4-0 Vicryl for subcutaneous. The skin was loosely approximated with subcuticular interrupted 4-0 Vicryl skin suture. The skin was then finally closed with a running 4-0 Monocryl skin suture. The wound was dressed with Exofin surgical adhesive. Patient was then turned to a supine position. The abdominal wall mass had been marked preoperatively as well. The abdomen was then prepped and draped. The proposed incision was marked on the skin to coincide with the markings made preoperatively. Local was again infiltrated into the skin and subcutaneous. Incision was made and dissected down to the subcutaneous mass. It was fairly easily found and was more discrete than the subcutaneous mass of the back. We dissected around mass and then followed it down to the abdominal wall anterior fascia. We looked for a communication with the abdominal wall fascia but none was found. The mass was excised. It was 3 cm in largest dimension as well. It was sent to pathology in formalin. We then set about with an extensive search for a small hernia defect. We undermined the subcutaneous all around the area of the mass. But with all of the anterior fascia exposed, there was no hernia defect to be found. We then closed the wound in layers. Chika's fascia was closed with interrupted 3-0 Vicryl. Superficial subcutaneous was closed with 3-0 and 4-0 Vicryl. Subcuticular interrupted 4-0 Vicryl skin stitches were placed. The wound was then closed with running 4-0 Monocryl skin suture. Wound was dressed with Exofin surgical adhesive. The patient was awakened and taken to recovery in good condition. Sponge needle counts were correct x2. Estimated Blood Loss -5 Drains No Packing No Pathology Yes (Subcutaneous masses of the back and anterior abdominal wall sent separately) Complications None Condition Stable Disposition PACU [facility] Billing Surgery - Charge Forward: Surgery Billing (Excision 3 cm masses of the back and abdominal wall, no margin on either of the masses.)
[2025-02-05] MEDS: ARTIFICIAL TEARS OPHTH SOLN 15 ML BOTTLE 1 DROP EACH EYE (15:20)
[2025-02-05] MEDS: PROPARACAINE HCL 0.5% 15 ML OPHTH SOLN 1 DROP EACH EYE (15:20)
[2025-02-05] MEDS: DICLOFENAC SODIUM 0.1% OPHTH SOLN 2.5 ML BOTTLE 1 DROP EACH EYE (15:33)
--- OUTSIDE RECORDS SUMMARY | 2025-02-05 16:11 | XMS_ITS | Clinical Summary ---
Author Organization [facility] Address [address] [place] [address] Phone Care Team Providers Care Hydrogen Power Plant Engineer Name Role Phone Donnell Sequeira MD Primary Care Provider [phone] Allergies No known active allergies Medications No [...] Virus (HCV) Screening 1990 TdaP Immunization 1990 Hepatitis B Immunization (1 of 3 - 19+ 3-dose series) 2009 Pap Smear 2011 Human Papillomavirus (HPV) Immunization (1 - 3-dose SCDM series) 2017 Cervical Cancer Screening (CCS) 2020 HPV/Cotest 2020 Influenza Immunization (#1) 2024 SARS-COV-2 Immunization ( season) 2024 Respiratory Syncytial Virus (RSV) Immunization (Adult) [...] patient's age to complete this topic Insurance [facility] Care Teams Hydrogen Power Plant Engineer Relationship Specialty Start Date End Date Donnell Sequeira MD [address] [place] [address] PCP - General Internal Medicine 01/14/23
--- OUTSIDE RECORDS SUMMARY | 2025-02-05 16:11 | XMS_ITS | Encounter Summary ---
Author Organization [facility] Address [address] [place] [address] Phone Care Team Providers Care Automotive Dismantler Name Role Phone Nasrin Lucero MD Primary Care Provider [phone] Nasrin Lucero MD Primary Care Provider [phone] Sabrina Carter MD Unavailable [phone] Donnell Sequeira MD Primary Care Provider [phone] Encounter Details Date Type Department Care Team (Late st Contact Info) Description 08/03/2012 Orders Only [facility] [address] [place] [address] Scanning, Provider Social History Tobacco Use Types Packs/Day Years Used Date Smoking Tobacco: Never Assessed Comments Unknown Sex and Gender Information Value Date Recorded Sex Assigned at Not on file Legal Sex Female 11:03 AM HORSE TRAINER Gender Identity Female 01/03/2024 10:52 AM CDT Sexual Orientation Straight 01/03/2024 10 :52 AM CDT documented as of this encounter Functional Status documented as of this encounter Plan of [...] COVID: Suspected 04/24/2023 04/24/2023 04/24/2023 10:32 AM HORSE TRAINER documented as of this encounter Care Teams Automotive Dismantler Relationship Specialty Start Date End Date Nasrin Lucero MD [address] [place] [address] PCP - General 02/12/13 09/14/21 Nasrin Lucero MD [address] [place] [address] PCP - General 08/05/12 02/11/13 Donnell Sequeira MD [address] [address] PCP - General Internal Medicine 09/15/21 Sabrina Carter MD [address] [address] Research Quality Assurance Analyst Obstetrics and Gynecology 01/19/17 documented as of this encounter
--- OUTSIDE RECORDS SUMMARY | 2025-02-05 16:11 | XMS_ITS | Clinical Summary ---
Author Organization [facility] [address] Address [address] [place] [address] Phone Care Team Providers Care Women'S Basketball Coach Name Role Phone Sabrina Carter MD Unavailable Balbina Sequeira MD Primary Care Provider [phone] Allergies No known active allergies Medications norgestimate-ethin yl estradioL (Sprintec, 28,) 0.25-0.035 mg per tabletIndications: Dysmenorrhea,Oral contraceptive pill surveillance Take 1 tablet by mouth daily 84 tablet 2 5 Active Active Problems Problem Noted Date Diagnosed Date Tendinitis of right elbow 08/13/2023 Assessment & Plan (08/13/2023 2:53 PM CDT): Patient is describing mild case of tendinitis right elbow. Started in January pain very infrequent is gradually built up to daily pain. 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 Son was diagnosed by resolution manager last week. Is beginning to feel better, [...] 09/16/2021 Assessment & Plan (02/28/2022 1:11 PM PHOTOGRAPHER'S ASSISTANT): Patient has a lipoma lateral border for [...] Patient is also given handbook from the [employer] regarding melanomas. Encounter for preventive health examination 01/31 Assessment & Plan (08/13/2023 2:51 PM CDT): 33-year-old lady here for annual exam she has no risk factors print physical completed patient's health risk assessment health maintenance reviewed in addressed. Patient's well-woman exam is current. Patient is describing tennis elbow at this time. Assessment & Plan (02/28/2022 1:12 PM PHOTOGRAPHER'S ASSISTANT): History and physical completed patient's health risk assessment health maintenance reviewed in addressed. Please see assessment and plan. 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 Patient is seen on 02/27/2022 Assessment & Plan (02/14/2021 5:25 PM PHOTOGRAPHER'S ASSISTANT): 30-year-old lady no ongoing health problems she [...] 02/28/2022 Assessment & Plan (02/14/2021 5:24 PM PHOTOGRAPHER'S ASSISTANT): Diagnosis erroneously submitted. This patient had abnormal glucose on a screening test for an insurance and she needs to have it repeated today she was never diagnosed with diabetes. Encounters Date Type Department Care Team Description 11/28/2024 Orders Only [facility] [address] [place] [address] Nurys Mcfarland LPN Dysmenorrhea; Oral contraceptive pill surveillance 11/28/2024 Telephone [facility] [address] [place] [address] Sabrina Carter MD Patient issue/concern 11/25/2024 Orders Only [facility] [address] [place] [address] Charlotte Herron MD from Last 3 Months Immunizations Immunization Administration Dates Next Due DTP 06/07/1994, 2,02/11/1991,10/09,1990 HPV, Quadrivalent 05/28/2007,01/22/2007,08/28/20 07 Hep B, Adolescent or Pediatric 1,05/29/2000,04/24/2000,10/09 [...] Used Date Smoking Tobacco: Former Cigarettes 0.5 16.8 S tarted: 2008 Smokeless Tobacco: Never Tobacco [...] on file Legal Sex Female 11:03 AM PHOTOGRAPHER'S ASSISTANT Gender Identity Female 01/03/2024 10:52 AM CDT Sexual Orientation Straight 01/03/2024 10 :52 AM CDT Occupation Industry Job Start Date Job End Date [employer] Not on file Not on file Not on file Obstetrics History Para Term AB IAB SAB Ectopic Multiple Livin g Live Births 1 1 1 0 0 1 1 Date Outcome GA Total Labor Labor/2nd/3rd Weight Sex Type Anes PTL Danya A1 A5 Name Clin 2014 Term M Vag-V acuum Living Last Filed [...] REFLEX TO GENOTYPING Routine 05/16/2021 9:36 AM PHOTOGRAPHER'S ASSISTANT Screening for malignant neoplasm of cervix HEPATITIS C ANTIBODY Routine 03/07/2013 4:48 PM PHOTOGRAPHER'S ASSISTANT from Last 3 Months or Most Recently Relevant to Health Maintenance Results * Pap and High Risk HPV, reflex to Genotyping (05/16/2021 9:36 AM PHOTOGRAPHER'S ASSISTANT) Thin prep (Pap test) 05/16/2021 9:36 AM PHOTOGRAPHER'S ASSISTANT 05/16/2021 9:36 AM PHOTOGRAPHER'S ASSISTANT Narrative PATHOLOGY - 05/18/2021 2:54 PM PHOTOGRAPHER'S ASSISTANT [facility] Department of Pathology [address] [place], [place] [id number] Final Report with Addendum Note to Patients: [...] the details. Patient Name: MAIRA UMANZOR Address: [address] [place] [address] Gender: F : 1990 (Age: 31) Service: Laboratory Location: Lab [facility] #: [id number] Patient Type: Ref Lab Taken: 05/16/2021 Received: [...] Electronically Reviewed and Signed Out By BOB Denton(ASCP) 05/18/2021 10:20:25 Specimen(s) Received: A: SCREENING THIN [...] determined by the Surgical Pathology Department at [facility] as part of an ongoing quality lead program and in compliance with federally mandated [...] characteristics determined by the Surgical Pathology Department [facility]. It has not been cleared or approved by the [place]. S. Food and Drug Administration. Sabrina Carter MD LAB CYTOLOGY ORDERABL ES Final Result PATHOLOGY [address] [place] [address] * Hepatitis C antibody (03/07/2013 4:48 PM PHOTOGRAPHER'S ASSISTANT) Hep C Ab NON-REACT LEX NON-REACT LEX [facility] SIGNAL TO CUT-OFF 0.03 <1.00 [facility] Comment: Test performed at [facility] [address] [place] [address] Director: BALBINA VELÁSQUEZ DO,MPH 03/07/2013 4:48 PM PHOTOGRAPHER'S ASSISTANT Sabrina Carter MD LAB MICROBIOLOGY - NERAL ORDERABLES Final Result [facility] from Last 3 Months or Most Recently Relevant to Health Maintenance Insurance [facility] H[facility]/PPO Address: [address] [place] [address] [facility] HMO/PPO Address: [address] [address] [place] [address] [employer] OPEN ACCESS [facility] HMO/PPO Address: [address] [address] [place] [address] Care Teams Women'S Basketball Coach Relationship Specialty Start Date End Date Balbina Sequeira MD [address] [address] PCP - General Internal Medicine 09/15/21 Sabrina Carter MD [address] [address] Best Worker Obstetrics and Gynecology 01/19/17
== END 2025-02-05 16:53 | disposition home or self-care (01) ==
PROVIDERS: PCP Nurse Practitioner Adult Health; Visit Provider Surgery
PROC: 0WQF0ZZ Repair Abdominal Wall, Open Approach (ICD-10-PCS; CPT 22903; principal; 2025-02-05 12:00)
DX: D17.1 Benign lipomatous neoplasm of skin and subcutaneous tissue of trunk (principal)
CPT/HCPCS: 22903; 21931; 36415; 85025; 88304; J0690; A9270; J1885; J2003; J2250; J2405; J2704; J3010; J7120